=== PATIENT | female | born 2000 | race Caucasian/White ===

== ENCOUNTER 2025-04-12 13:27 | Emergency (ER) | payer OTHER, SELFPAY ==
[2025-04-12 13:29] VITALS: BP 124/79
--- NOTE | 2025-04-12 15:32 | ED.GENMED ---
History of Present Illness
General
Chief Complaint: Skin Problem
Time Seen by Provider: 04/12/25 15:18
History of Present Illness
History of Present Illness:
25-year-old female with history of epilepsy presenting for concern of a rectal abscess. Patient has that she has had pain and inflammation around her rectum for the past month, constantly draining. She went to her GI doctor who told her that she
needed to come to the hospital for drainage and antibiotics. Denies fever. Denies ever having this issue in the past. Notes significant amount of pain. Denies abdominal pain. Denies additional acute medical complaints
Phy Exam
Physical Exam
Physical Exam:
General: Well-appearing, no clinical signs of dehydration, nontoxic and in no acute distress
HEENT: protecting airway
Neck: appears supple
CV: Normal heart rate
Resp: No accessory muscle use, no increased work of breathing
Abd: Soft and non-distended, no tenderness to palpation, normal bowel sounds
Extremities: No deformities, no swelling
Neuro: alert, no focal neurologic deficit
: deferred
Rectal: Perirectal abscess at the 3 o'clock position with active drainage and diffuse tenderness on palpation
Psych: Normal affect
Skin: Intact
Course
Orders/Labs/Results
Orders:
Orders
04/12/25 15:27
CT Abd/pelvis W Iv Cont Urgent
Comment:
Reason For Exam: rectal abscess
04/12/25 15:30
Test Result ONCE
04/12/25 15:47
Complete Blood Count/With Diff Urgent
Comprehensive Metabolic Panel Urgent
HCG, Serum Qualitative Screen Urgent
04/12/25 19:58
Cephalexin Monohydrate [Keflex] 500 mg PO NOW STA
Sulfamethox./Trimethoprim Ds [Bactrim Ds 800 mg/160 mg] 1 tablet PO NOW STA
Abnormal Lab Results
04/12/25
15:47
Absolute Monos (auto) 1.1 H 10^3/uL
(0.1-0.6)
Monocytes % 11.6 H %
(1.7-9.3)
ALT 56 H U/L
(0-35)
04/12/25 15:47
04/12/25 15:47
Vital Signs
Initial and Last Documented VS:
Initial Vital Signs
Temp Pulse Resp BP Pulse Ox
98.3 F 93 16 124/79 99
04/12/25 13:29 04/12/25 13:29 04/12/25 13:29 04/12/25 13:29 04/12/25 13:29
Last Documented Vital Signs
Temp Pulse Resp BP Pulse Ox
98.3 F 90 18 112/68 98
04/12/25 13:29 04/12/25 18:48 04/12/25 18:48 04/12/25 18:48 04/12/25 18:48
Procedures
Incision/Drainage/Joint Aspiration
rectum:
Anethesia: 1% Lidocaine
Type of procedure: incise and drain
Nature of site: abscess
Description of abscess: less than 3cm
Loculations broken up: Yes
How much fluid was obtained?: scant amount
Fluid description: purulent
Treatment: left open for drainage
MDM/Problems Addressed
MDM/Problems Addressed:
25-year-old female presenting to the emergency department for rectal pain and concern of abscess. Vital signs are normal.
On exam patient has evidence of a perirectal abscess, actively draining. Diffusely tender to palpation with some induration. Given location and duration of symptoms, will obtain a CT imaging to ensure no deeper space collection. If superficial,
plan for bedside incision and drainage
19:50 -CT shows mild subcutaneous inflammatory change along the left lateral aspect of the anus/anorectal junction, without discrete fluid collection. Bedside incision and drainage performed given that abscess is actively draining. Small amount of
pus obtained. Given CT findings, without concern for significant deeper collection. Will start patient on antibiotics in the setting of cellulitis and inflammatory changes. Patient started on Bactrim and Keflex. Return precautions also patient
verbalized understanding
*Pulse Oximetry
SaO2: 99
Oxygen Mode of Delivery: Room air
Patient hypoxic: no
*Critical Care Note
Total Time (30-74mins, 75-104mins- exclusive of procedures): Not Applicable
ED Attending Note
-
Portions of this chart may have been created with voice recognition software.� Occasional wrong word or��sound alike� substitutions may have occurred due to the inherent limitations of voice recognition software.
Discharge Plan
Departure
Patient Disposition: Home (Routine Discharge)
Date of Disposition: 04/12/25
Time of Disposition: 20:00
Patient with high blood pressure during this ER visit?: No
Condition: Good
Discharge Problem:
Perirectal abscess, Perirectal cellulitis
Instructions: Cellulitis (Skin Infection), Adult (DC), Anal abscess and fistula - Discharge instructions
Prescriptions:
New
cephalexin 500 mg capsule
500 mg PO QID 7 Days Qty: 28 0RF
sulfamethoxazole-trimethoprim [Bactrim DS] 800-160 mg tablet
1 tab PO BID 7 Days Qty: 14 0RF
Referrals:
NONE,* [Family Provider, Internal Medicine]
Activity Restrictions/Additional Instructions:
You were seen in the emergency department for concern of an abscess at your rectum
You had reassuring laboratory analysis and CT imaging which showed local inflammation to the rectal area without significant fluid collection. The area was drained. You were started on antibiotics. Please take antibiotics as directed and
follow-up with your doctor within 2 to 3 days for reassessment.
Return to the emergency department for any worsening of your symptoms, or any development of chest pain, difficulty breathing, abdominal pain with persistent vomiting and inability to tolerate food or liquid by mouth (concern for dehydration),
weakness, headache or confusion, fever greater than 100.4, or any additional symptoms that are concerning to you.
Thank you for choosing [facility].
Interventions
Interventions:
ED-Skin Assessment Last Done: 04/12/25 16:00
Discharge Date and Time
Print Language: ETHIOPIAN
[2025-04-12 15:55] LABS: Hematocrit 46.3 % (37.0-47.0); Hemoglobin 15.3 g/dL (12.0-16.0); Mean Corp Hgb Conc. 33.0 g/dL (33.0-37.0); Mean Corpuscular Volume 86.9 fL (81.0-99.0); Nucleated Red Blood Cells % 0 %; Platelet Count 190 10^3/uL (130-400); Red Cell Dist. Width 12.3 % (11.5-14.5)
[2025-04-12 16:10] LABS: ALT (SGPT) 56 U/L (0-35); AST (SGOT) 36 U/L (14-36); Albumin 4.8 g/dl (3.5-5.0); Alkaline Phosphatase 63 U/L (38-126); Blood Urea Nitrogen 13 mg/dl (7-17); Calcium 9.5 mg/dl (8.4-10.2); Carbon Dioxide 29 mmol/L (22-30); Chloride 104 mmol/L (98-107); Glucose 90 mg/dl (70-99); Potassium 4.2 mmol/L (3.5-5.1); Sodium 141 mmol/L (135-145); Total Protein 7.8 g/dl (6.3-8.2); eGFR > 60.00
[2025-04-12 16:26] LABS: HCG, Serum Qualitative Screen Negative
[2025-04-12 18:48] VITALS: BP 112/68
[2025-04-12] MEDS: BACTRIM DS 800 MG/160 MG 1 TABLET PO (20:06)
[2025-04-12] MEDS: KEFLEX 500 MG PO (20:06)
== END 2025-04-12 20:11 | disposition home or self-care (01) ==
LOC: EMR 13:27
PROVIDERS: EMERGENCY PHYSICIAN Student in an Organized Health Care Education/Training Program
DX: K61.1 Rectal abscess (principal)
CPT/HCPCS: 46040; 99284; 74177; 80053; 84703; 85025; Q9967

== ENCOUNTER 2025-05-24 06:08 | Day surgery (SDC) | payer OTHER, SELFPAY ==
[2025-05-24] VITALS (8 sets, daily range): BP systolic 102–136; BP diastolic 57–78; BMI 27.2
[2025-05-24] MEDS: NORMOSOL-R/PLASMALYTE-A 1000 IV (08:14)
[2025-05-24] MEDS: TYLENOL 1000 MG PO (08:15)
[2025-05-24] MEDS: TRANSDERM-SCOP 1 PATCH TRANSDERM (08:39)
== END 2025-05-24 11:01 | disposition home or self-care (01) ==
LOC: SDS 06:08
PROVIDERS: ATTENDING PHYSICIAN Surgery
DX: K60.50 Anorectal fistula, unspecified (principal)
CPT/HCPCS: 46270